=== PATIENT | male | born 2000 | race Caucasian/White ===

== ENCOUNTER 2021-09-26 02:19 | Emergency (ER) | payer OTHER ==
[~2021-09-26] VITALS: Ht 177.8 cm; Wt 63.5 kg
[2021-09-26 02:30] VITALS: BP_SYST 123
--- NOTE | 2021-09-26 03:00 | NUR ---
Patient to ER bed 8 to gown for evaluation. Side rails up. Report given to STEVAN RIVERA.
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
[2021-09-26] MEDS ORDERED: iohexoL 350 mgI/mL, 100 ML INFUS..BTL IV ONE (03:52)
[2021-09-26 04:19] VITALS: BP_SYST 115
[2021-09-26 04:23] LABS: BASOPHILS % (AUTO) 0.3 % (0.0-2.0); EOSINOPHILS % (AUTO) 0.1 % (0.0-4.0); HEMOGLOBIN 15.6 g/dL (14.0-18.0); LYMPHOCYTES # (AUTO) 0.9 K/uL (1.0-5.5); LYMPHOCYTES % (AUTO) 10.8 % (20.5-51.5); MEAN CORPUSCULAR HEMOGLOBIN 31 pg (27-31); MEAN CORPUSCULAR HGB CONC 35 % (32-36); MEAN CORPUSCULAR VOLUME 89 fL (79.0-98.0); MONOCYTES # (AUTO) 0.5 K/uL (0.0-1.0); MONOCYTES % (AUTO) 5.4 % (1.7-9.3); NEUTROPHILS % (AUTO) 83.4 % (40.0-70.0); PLATELET COUNT (AUTO) 257 K/uL (130-430); RED BLOOD CELL COUNT(AUTO) 5.04 MIL/uL (4.2-6.2); RED CELL DISTRIBUTION WIDTH 12.9 % (9.0-15.0); WHITE BLOOD COUNT (AUTO) 8.4 K/uL (4.5-11.0)
--- NOTE | 2021-09-26 04:24 | NUR ---
PT OFF UNIT AT CT SCAN
[2021-09-26 04:47] LABS: CREATININE 0.99 mg/dL (0.55-1.30); POTASSIUM 3.7 mmol/L (3.5-5.1)
[2021-09-26] MEDS ORDERED: IBUP-1969 PO (06:26)
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
[2021-09-26] MEDS ORDERED: dilTIAZem HCL IVP 5 MG/ML VIAL ONE (09:04)
[2021-09-26] MEDS ORDERED: DILTIAZEM HCL 60 MG TABLET ONE (09:04)
== END 2021-09-26 06:51 | disposition home or self-care (01) ==
LOC: SED 02:19
DX: R42 Dizziness and giddiness (principal); Z88.0 Allergy status to penicillin; V49.49XA Driver injured in collision with other motor vehicles in traffic accident, initial encounter; Y93.89 Activity, other specified; Y92.89 Other specified places as the place of occurrence of the external cause; Y99.8 Other external cause status
CPT/HCPCS: 36415; 70450; 71260; 72125; 74177; 76376; 80048; 85025; 99284; J3490; Q9967